=== PATIENT | female | born 1955 | race Two or more races ===

== ENCOUNTER 2020-11-17 11:15 | Outpatient (CLI) | payer BC | END 2020-11-17 23:59 | disposition home or self-care (01) | LOC: WOU 11:15 | PROVIDERS: ATTEND Surgery | DX: C50.911 Malignant neoplasm of unspecified site of right female breast (principal); Z17.0 Estrogen receptor positive status [ER+]; I10 Essential (primary) hypertension | CPT/HCPCS: G0463 ==

== ENCOUNTER 2020-12-08 12:30 | Outpatient (CLI) | payer BC | END 2020-12-08 23:59 | disposition home or self-care (01) | LOC: WOU 12:30 | PROVIDERS: ATTEND Surgery | DX: C50.911 Malignant neoplasm of unspecified site of right female breast (principal); I10 Essential (primary) hypertension | CPT/HCPCS: G0463 ==

== ENCOUNTER 2021-01-05 10:55 | Outpatient (CLI) | payer BC | END 2021-01-05 23:59 | disposition home or self-care (01) | LOC: WOU 10:55 | PROVIDERS: ATTEND Surgery | DX: Z48.3 Aftercare following surgery for neoplasm (principal); C50.911 Malignant neoplasm of unspecified site of right female breast | CPT/HCPCS: G0463 ==

== ENCOUNTER 2021-01-19 11:20 | Outpatient (CLI) | payer BC | END 2021-01-19 23:59 | disposition home or self-care (01) | LOC: WOU 11:20 | PROVIDERS: ATTEND Surgery | DX: Z48.3 Aftercare following surgery for neoplasm (principal); C50.911 Malignant neoplasm of unspecified site of right female breast; I10 Essential (primary) hypertension | CPT/HCPCS: 99213; J7040; G0463 ==

== ENCOUNTER 2021-02-02 11:00 | Outpatient (CLI) | payer BC | END 2021-02-02 23:59 | disposition home or self-care (01) | LOC: WOU 11:00 | PROVIDERS: ATTEND Surgery | DX: Z48.3 Aftercare following surgery for neoplasm (principal); C50.911 Malignant neoplasm of unspecified site of right female breast; I10 Essential (primary) hypertension; Z90.11 Acquired absence of right breast and nipple; Z17.0 Estrogen receptor positive status [ER+] | CPT/HCPCS: 99213; J7040; G0463 ==

== ENCOUNTER 2021-02-23 10:55 | Outpatient (CLI) | payer BC | END 2021-02-23 23:59 | disposition home or self-care (01) | LOC: WOU 10:55 | PROVIDERS: ATTEND Surgery | DX: Z48.89 Encounter for other specified surgical aftercare (principal); C50.911 Malignant neoplasm of unspecified site of right female breast; Z90.11 Acquired absence of right breast and nipple; Z17.0 Estrogen receptor positive status [ER+] | CPT/HCPCS: 99213; J7040; G0463 ==

== ENCOUNTER 2021-03-09 11:25 | Outpatient (CLI) | payer BC | END 2021-03-09 23:59 | disposition home or self-care (01) | LOC: WOU 11:25 | PROVIDERS: ATTEND Surgery | DX: C50.911 Malignant neoplasm of unspecified site of right female breast (principal); Z90.11 Acquired absence of right breast and nipple; Z17.0 Estrogen receptor positive status [ER+] | CPT/HCPCS: 99213; J7040; G0463 ==

== ENCOUNTER 2021-06-13 08:38 | Outpatient (CLI) | payer BC | END 2021-06-13 23:59 | disposition home or self-care (01) | LOC: WOU 08:38 | PROVIDERS: ATTEND Surgery | DX: C50.911 Malignant neoplasm of unspecified site of right female breast (principal); Z90.11 Acquired absence of right breast and nipple; Z17.0 Estrogen receptor positive status [ER+] | CPT/HCPCS: G0463 ==

== ENCOUNTER 2021-06-27 08:13 | Outpatient (CLI) | payer BC | END 2021-06-27 23:59 | disposition home or self-care (01) | LOC: WOU 08:13 | PROVIDERS: ATTEND Surgery | DX: C50.911 Malignant neoplasm of unspecified site of right female breast (principal); Z90.11 Acquired absence of right breast and nipple; Z17.0 Estrogen receptor positive status [ER+]; I10 Essential (primary) hypertension | CPT/HCPCS: G0463 ==

== ENCOUNTER 2021-07-06 09:00 | Outpatient (CLI) | payer BC | END 2021-07-06 23:59 | disposition home or self-care (01) | LOC: LAB 09:00 | PROVIDERS: ATTEND Surgery | DX: Z01.812 Encounter for preprocedural laboratory examination (principal); Z20.822 Contact with and (suspected) exposure to COVID-19 | CPT/HCPCS: C9803; U0003 ==

== ENCOUNTER 2021-07-11 05:48 | Inpatient (IN) | payer BC ==
[2021-07-11] VITALS (15 sets, daily range): BP systolic 75–131; BP diastolic 35–76
[~2021-07-11] VITALS: Ht 160 cm; Wt 70.8 kg
--- NOTE | 2021-07-11 06:10 | NUR ---
MS RN ADMITTING/OPENING NOTES PATIENT ARRIVED TO THE UNIT AT APPROXIMATELY 0610. PATIENT WAS ABLE TO WALK INDEPENDENTLY TO HER ROOM. PATIENT WAS ORIENTED TO THE STAFF AND ROOM. ALL BELONGINGS ACCOUNTED FOR. PATIENT'S ALERT AND ORIENTEDX4. PATIENT'S STABLE ON ROOM AIR. PATIENT'S IN NO ACUTE DISTRESS AT THIS TIME. VSS ARE NORMAL. SAFETY MEASURES IN PLACE: BED LOCKED, SIDE RAILS UPX2, AND CALL LIGHT WITHIN REACH OF THE PATIENT. WILL CONTINUE TO MONITOR THE PATIENT. INSERTED AN IV IN PATIENT'S LFA GAUGE#20, WHICH IS INTACT, PATENT, AND FLUSHING WELL.
[2021-07-11] MEDS ORDERED: ANESTHESIA TRAY IN PYXIS 1 EA TRAY MC ONE (06:49)
[2021-07-11] MEDS ORDERED: GENTAMICIN 80 MG/2 ML VIAL ONE (06:58)
[2021-07-11] MEDS ORDERED: CEFAZOLIN 0 GM ONE (06:59)
[2021-07-11] MEDS ORDERED: FENTANYL PF 250MCG/5ML AMPUL ONE (07:02)
[2021-07-11] MEDS ORDERED: HYDROMORPHONE INJ 2 MG/ML DISP.SYRIN ONE (07:03)
[2021-07-11] MEDS ORDERED: MIDAZOLAM HCL 2 MG/2ML VIAL ONE (07:03)
[2021-07-11] MEDS ORDERED: FAMOTIDINE/PF INJ 20 MG/2 ML VIAL IV ONE (07:04)
[2021-07-11] MEDS ORDERED: CLINDAMYCIN 900 MG/6 ML VIAL ONE ×2 (07:04→07:09)
--- NOTE | 2021-07-11 07:30 | NUR ---
MS RN CLOSING NOTES PATIENT IS CURRENTLY IN THE OPERATING ROOM. PATIENT'S ALERT AND ORIENTEDX4. PATIENT'S STABLE ON ROOM AIR. IV ACCESS NOTED IN LFA GAUGE#20, WHICH IS INTACT, PATENT, AND FLUSHING WELL. PATIENT'S IN NO ACUTE DISTRESS AT THIS TIME. SAFETY MEASURES IN PLACE: BED LOCKED, SIDE RAILS UPX2, AND CALL LIGHT WITHIN REACH OF THE PATIENT. ENDORSED CARE TO THE DAY SHIFT NURSE.
--- NOTE | 2021-07-11 11:40 | NUR ---
RN MS NOTES RECEIVED PT FROM Chasity FABIAN, PT IN BED, AWAKE, ALERT AND ORIENTED, NO COMPLANT OF PAIN AT THIS TIME, BREATHING PATTERN NORMAL, CALL LIGHT PLACED WITHIN REACH, ROOM SET UP ORIETNTATION PROVIDED, VITALS SIGNS CHECKED AND RECORDED, POST OP ORDERS RECEIVED, KEPT PT WARM AND COMFORTABLE, WILL CONTINUE TO MONITOR.
--- NOTE | 2021-07-11 11:40 | NUR ---
RN MS NOTES NOTED INCISIONS OF BOTH BREASTS, STERISTRIPS IN PLACE AND INTACT, NO BLEEDING NOTED.
[2021-07-11] MEDS ORDERED: VALS160T29 PO (11:54)
[2021-07-11] MEDS ORDERED: CAPE500T15 PO (11:54)
[2021-07-11] MEDS ORDERED: DOXA4TAB19 PO (11:54)
[2021-07-11] MEDS ORDERED: AMLO-212 PO (11:54)
[2021-07-11] MEDS ORDERED: LETR2.5T8 PO (11:54)
[2021-07-11] MEDS ORDERED: CHOL100062 PO (11:54)
[2021-07-11] MEDS ORDERED: HYDR12.55 PO (11:54)
[2021-07-11] MEDS ORDERED: IV NS 0.9% 250 ML IV ONE ×2 (12:30→13:30)
[2021-07-11] MEDS ORDERED: TEMAZEPAM 15 MG CAPSULE PO PRN (13:30)
[2021-07-11] MEDS ORDERED: ONDANSETRON HCL/PF 4 MG/2 ML VIAL IV PRN (15:00)
--- NOTE | 2021-07-11 16:14 | NUR ---
RN MS NOTES PT IN BED, LATEST BP 92/50 HR 108, DR. HURLEY AWARE, ORDERS RECEIVED TO GIVE BOLUS NS 500ML AND TO START IVF NS ATG 75ML/HR, NOTED AND CARRIED OUT, PT IN BED, ASLEEP, EASY TO AROUSE, NO COMPLAINT AT THIS TIME, SLEEPY, NO COMPLAINT OF DIZZINESS OR HEADACHE, SON IN [employer] INFORMED THAT PT IS GOING TO STAY OVERNIGHT FOR OBSERVATION, VERBALIZED UNDERSTANDING.
[2021-07-11] MEDS ORDERED: IV NS 0.9% 500 ML IV ONE (16:30)
[2021-07-11] MEDS: IV NS 0.9% 1,000 ML IV PRN (16:40)
[2021-07-11] MEDS ORDERED: CAPECITABINE 500 MG TABLET PO SCH (17:00)
--- NOTE | 2021-07-11 18:09 | NUR ---
RN MS NOTES PT IN BED, AWAKE, ALERT AND ORIENTED, NO COMPLAINT OF PAIN, NOT IN DISTRESS, WITH EPISODES OF NAUSEA/VOMITING, MEDS GIVEN ORDERED, BP STILL ON THE 90'S AND HIG 80'S, MD AWARE, ORDERS GIVEN, PT ABLE TO AMBULATE TO THE BATHROOM WITH ASSISTANCE, ABLE TO EAT AND DRINK, FAMILY MADE AWARE THAT PT IS STAYING OVERNIGHT, VERBALIZED UNDERSTANDING, NEEDS ATTENDED.
--- NOTE | 2021-07-11 19:30 | NUR ---
MS RN OPENING NOTES PATIENT WAS SEEN AWAKE IN BED RESTING. PATIENT'S ALERT AND ORIENTEDX4. PATIENT'S STABLE ON ROOM AIR. IV ACCESS NOTED IN LFA GAUGE#20, WHICH IS INTACT, PATENT, AND FLUSHING WELL. PATIENT'S IN NO ACUTE DISTRESS AT THIS TIME. SAFETY MEASURES IN PLACE: BED LOCKED, SIDE RAILS UPX2, AND CALL LIGHT WITHIN REACH OF THE PATIENT. WILL CONTINUE TO MONITOR THE PATIENT.
[2021-07-12] MEDS: IV NS 0.9% 1,000 ML IV PRN (06:22)
[2021-07-12 06:38] LABS: BASOPHILS % (AUTO) 0.1 % (0.0-2.0); EOSINOPHILS % (AUTO) 0.1 % (0.0-6.0); HEMATOCRIT 26 % (33-45); HEMOGLOBIN 8.7 g/dL (11.5-14.8); LYMPHOCYTES # (AUTO) 0.5 K/uL (0.8-4.8); LYMPHOCYTES % (AUTO) 3.9 % (20.0-44.0); MEAN CORPUSCULAR HGB CONC 34 g/dl (31.0-36.0); MEAN CORPUSCULAR VOLUME 107 fL (82-100); MONOCYTES % (AUTO) 7.2 % (2.0-12.0); NEUTROPHILS # (AUTO) 11.8 K/uL (1.8-8.9); NEUTROPHILS % (AUTO) 88.7 % (43.0-81.0); PLATELET COUNT (AUTO) 139 K/uL (150-450); RED BLOOD CELL COUNT(AUTO) 2.41 MIL/uL (4.0-5.2); WHITE BLOOD COUNT (AUTO) 13.3 K/uL (4.3-11.0)
[2021-07-12 06:47] LABS: CALCIUM, SERUM 7.1 mg/dL (8.5-10.1); CREATININE 0.6 mg/dL (0.6-1.3); POTASSIUM 3.8 mmol/L (3.5-5.1)
--- NOTE | 2021-07-12 07:28 | NUR ---
MS RN CLOSING NOTES PATIENT WAS SEEN AWAKE IN BED RESTING. PATIENT'S ALERT AND ORIENTEDX4. PATIENT'S STABLE ON ROOM AIR. IV ACCESS NOTED IN LFA GAUGE#20, WHICH IS INTACT, PATENT, AND FLUSHING WELL. PATIENT'S IN NO ACUTE DISTRESS AT THIS TIME. SAFETY MEASURES IN PLACE: BED LOCKED, SIDE RAILS UPX2, AND CALL LIGHT WITHIN REACH OF THE PATIENT. ENDORSED CARE TO THE DAY SHIFT NURSE.
--- NOTE | 2021-07-12 07:30 | NUR ---
RN MS NOTES PT IN BED, AWAKE, ALERT AND ORIENTED, NO COMPLAINT OF PAIN OR ANY DISCOMFORT, CALL LIGHT WITHIN REACH, NEEDS ATTENDED, STATED SHE IS FEELING SO MUCH BETTER AND IS READY TO GO HOME.
[2021-07-12 08:00] VITALS: BP 117/65
[2021-07-12] MEDS ORDERED: LETROZOLE 2.5 MG TABLET PO SCH (09:00)
[2021-07-12] MEDS ORDERED: CHOLECALCIFEROL 1,000 UNIT TABLET (VIT D3) PO SCH (09:00)
--- NOTE | 2021-07-12 10:09 | NUR ---
RN MS NOTES PT IN BED, AWAKE, ALERT AND ORIENTED, SITTING IN BED, NO COMPLAINT OF PAIN, NOT IN DISTRESS, PT ABLE TO WALK ALONG THE HALLWAY WITH STEADY GAIT, PT SEEN BY DR. HURLEY AND DR. MCMAHON, DISCHARGE AND MEDICATION INSTRUCTIONS PROVIDED TO PT, VERBALIZED UNDERSTANDING, BELONGINGS ACCOUNTED FOR, PRESCRIPTION GIVEN TO PT, ASSISTED PT TO WHEELCHAIR, ASSISTED TO HOSPITAL LOBBY, PICKED UP BY SON IN [place] [employer], LEFT VIA PRIVATE CAR IN STABLE CONDITION.
== END 2021-07-12 10:15 | disposition home or self-care (01) | DRG 585 ==
LOC: DS 05:48 → MED 05:50
PROVIDERS: ADMIT Nurse Practitioner Acute Care; ATTEND Nurse Practitioner Acute Care
PROC: 0HPT0NZ Removal of Tissue Expander from Right Breast, Open Approach (ICD-10-PCS; principal; 2021-07-11)
PROC: 0HRT0JZ Replacement of Right Breast with Synthetic Substitute, Open Approach (ICD-10-PCS; 2021-07-11)
PROC: 0HNT0ZZ Release Right Breast, Open Approach (ICD-10-PCS; 2021-07-11)
PROC: 0HUU0JZ Supplement Left Breast with Synthetic Substitute, Open Approach (ICD-10-PCS; 2021-07-11)
PROC: 0HSV0ZZ Reposition Bilateral Breast, Open Approach (ICD-10-PCS; 2021-07-11)
DX: N65.0 Deformity of reconstructed breast (principal); I10 Essential (primary) hypertension; E86.0 Dehydration; E66.9 Obesity, unspecified; N65.1 Disproportion of reconstructed breast; Z90.11 Acquired absence of right breast and nipple; Z68.27 Body mass index [BMI] 27.0-27.9, adult; D75.89 Other specified diseases of blood and blood-forming organs; Z79.899 Other long term (current) drug therapy
CPT/HCPCS: 36415; 80048-TC; 85025-TC; 87081-TC; 88300-TC; 88304-TC; 97116-TC; 97530-TC; G0378; J0330; J0690; J1170; J1580; J2250; J2405; J2704; J2765; J3010; J3490; J7030; J7040; J7050; L8600